=== PATIENT | female | born 1990 | race Caucasian/White ===

== ENCOUNTER 2018-11-30 12:29 | Emergency (ER) | payer OTHER ==
[~2018-11-30] VITALS: Wt 72.0 kg
[2018-11-30 12:34] VITALS: BP 144/79; PULSE 80; RESP 18
[2018-11-30] MEDS ORDERED: NYST1POW22 TOPICAL (13:10)
[2018-11-30] MEDS ORDERED: MUPI22OI2 TOP (13:10)
[2018-11-30] MEDS ORDERED: FLUC150T PO (13:10)
--- NOTE | 2018-11-30 15:09 | ERD ---
ER Documentation Chief Complaint Chief Complaint R INGUINAL AREA BLEEDING FROM POSSIBLE ABSCESS, ONSET SINCE LAST NIGHT HPI 28-year-old female presenting with skin complaints to the right inguinal region. Patient states that she had irritation starting in the area after it was waxed 3 months ago. She was placed on oral antibiotics which did not alleviate her symptoms she had continued irritation. She states it is red and burning. Denies other medical problems. NKDA. Surgical history denies. Social history denies ROS All systems reviewed and are negative except as per history of present illness. Medications Home Meds Active Scripts Fluconazole* (Diflucan*) 150 Mg Tablet, 150 MG PO ONCE, #1 TAB Prov:ADELIA TUTTLE PA-C 11/30/18 Nystatin (Nystatin Powder) 1 Each Powder.ea., 1 APPLIC TOPICAL TID, #1 BOTTLE Prov:ADELIA TUTTLE PA-C 11/30/18 Mupirocin* (Bactroban*) 2% -22 Gram Oint...g., 1 APPLIC TOP BID for 7 Days, EA Prov:ADELIA TUTTLE PA-C 11/30/18 PMhx/Soc Medical and Surgical Hx: pt denies Medical Hx, pt denies Surgical Hx History of Surgery: No Anesthesia Reaction: No Hx Neurological Disorder: No Hx Respiratory Disorders: No Hx Cardiac Disorders: No Hx Psychiatric Problems: No Hx Miscellaneous Medical Probl: No Hx Alcohol Use: No Hx Substance Use: No Hx Tobacco Use: No Smoking Status: Never smoker FmHx Family History: No diabetes, No coronary disease, No other Physical Exam Vitals Vital Signs Date Temp Pulse Resp B/P (MAP) Pulse Ox O2 O2 Flow FiO2 Time Delivery Rate 11/30/18 98.0 80 18 144/79 98 12:34 (100) Physical Exam GENERAL: The patient is well-appearing, well-nourished, in no acute distress HEENT: Atraumatic. Conjunctivae are pink. Pupils equal, round, and reactive to light. There is no scleral icterus. Tympanic membranes clear bilaterally. Oropharynx clear. NECK: C-spine is soft and supple. There is no meningismus. There is no cervical lymphadenopathy. CHEST: Clear to auscultation bilaterally. There are no rales, wheezes or rhonchi. HEART: Regular rate and rhythm. No murmurs, clicks, rubs or gallops. No S3 or S4. SKIN: Large erythematous region with crusting noted around the periphery. No pustules or skin breaks. Mild serous weeping. Procedures/MDM MDM: 28-year-old female presenting with findings consistent with a yeast infection was discharged superinfection with secondary bacterial changes. A low suspicion for folliculitis. I have low suspicion for deep tracking abscess. Patient will be discharged with both antifungals and antibacterial medications. I did not feel that blood work or imaging was indicated. Patient is discharged with strict ER precautions and told to follow-up with primary care within 1 to 2 days for close evaluation. Patient is told symptoms change or worsen to return immediately to the ER. All questions answered at discharge Departure Diagnosis: Primary Impression: Bacterial infection Additional Impression: Yeast infection Condition: Stable Patient Instructions: Tinea Cruris, Jock Itch, Impetigo Referrals: [facility] YOU HAVE RECEIVED A MEDICAL SCREENING EXAM AND THE RESULTS INDICATE THAT YOU DO NOT HAVE A CONDITION THAT REQUIRES URGENT TREATMENT IN THE EMERGENCY DEPARTMENT. FURTHER EVALUATION AND TREATMENT OF YOUR CONDITION CAN WAIT UNTIL YOU ARE SEEN IN YOUR DOCTORS OFFICE WITHIN THE NEXT 1-2 DAYS. IT IS YOUR RESPONSIBILITY TO MAKE AN APPOINTMENT FOR [facility]. IF YOU HAVE A PRIMARY DOCTOR --you should call your primary doctor and schedule an appointment IF YOU DO NOT HAVE A PRIMARY DOCTOR YOU CAN CALL OUR PHYSICIAN REFERRAL HOTLINE AT IF YOU CAN NOT AFFORD TO SEE A PHYSICIAN YOU CAN CHOSE FROM THE FOLLOWING [facility] CL[facility] [address] [facility]. [facility] [address] [facility] [address] [facility] [address] [facility]. [facility] [address] [facility]. [facility] [address] Additional Instructions: FOLLOW UP WITH YOUR PRIMARY CARE PHYSICIAN TOMORROW.Return to this facility if you are not improving as expected. ADELIA TUTTLE PA-C 18, 2019 15:09
== END 2018-11-30 14:10 | disposition home or self-care (01) ==
LOC: FTE 12:29
DX: A49.9 Bacterial infection, unspecified (principal); B37.9 Candidiasis, unspecified
CPT/HCPCS: 99283